=== PATIENT | female | born 1940 | race Asian ===

== ENCOUNTER 2016-06-27 18:21 | Emergency (ER) | payer OTHER ==
[~2016-06-27] VITALS: Ht 172.7 cm; Wt 73.5 kg
[~2016-06-27 18:21] MED LIST: ALPR0.2566 PO; ASPIR-8181 MG OR; BENTYL10 MG PO; BENZONATATE100 MG PO; CARAFATE1 GM PO; CLEM2.687 OR; CLOP75TA2 PO; FLUT0.05 NAS; GABA300C2 PO; GLUCOPHAGE1000 MG PO; INTEGRA OR; KAPVAY0.1 MG PO; KETOROLAC15 MG/ML IJ; LISI20TA24 PO; LOPERAMIDE2 MG OR; MECLIZINE25 M1 OR; METO5TAB16 PO; MYSOLINE50 MG OR; NEXIUM40 M1 PO; ONDA4TAB3 PO; RANI150T78 PO; SINGULAIR10 MG OR; SITA50TA2 PO; VALTREX1 GM PO; VICODIN ES1 TA1 PO; Z-PAK PO; ZANAFLEX2 MG PO
[2016-06-27 19:22] LABS: PLATELET COUNT 205 K/uL (152-353)
[2016-06-27 19:32] LABS: POTASSIUM 4.8 mmol/L (3.6-5.2)
[2016-06-28 00:55] VITALS: BP 168/88; TEMP 98.1
== END 2016-06-28 00:57 | disposition home or self-care (01) ==
LOC: ED 18:21
DX: E11.65 Type 2 diabetes mellitus with hyperglycemia (principal); N13.39 Other hydronephrosis
CPT/HCPCS: 36415; 80048; 83036; 85027; 96360; 96361; 99284; Q9963

== ENCOUNTER 2016-07-26 08:28 | Emergency (ER) | payer OTHER ==
[~2016-07-26] VITALS: Ht 172.7 cm; Wt 73.5 kg
[2016-07-26 08:26] VITALS: TEMP 97.8
[2016-07-26 09:29] LABS: PLATELET COUNT 202 K/uL (152-353)
[2016-07-26 09:36] LABS: POTASSIUM 4.4 mmol/L (3.6-5.2); SODIUM 130 mmol/L (136-145)
[2016-07-26 10:05] LABS: PARTIAL THROMBOPLASTIN TIME 21.6 SECONDS (24.5-33.6)
[2016-07-26] MEDS ORDERED: AMOX875T8 PO (10:39)
[2016-07-26] MEDS ORDERED: BENZ100C8 PO (10:39)
[2016-07-26 10:43] VITALS: BP 160/80
== END 2016-07-26 10:43 | disposition home or self-care (01) ==
LOC: ED 08:28
PROVIDERS: Emergency Medicine
DX: E87.1 Hypo-osmolality and hyponatremia (principal); R53.1 Weakness
CPT/HCPCS: 36415; 80053; 82550; 84484; 85027; 85610; 85730; 93005; 99283

== ENCOUNTER 2016-08-18 11:02 | Outpatient (CLI) | payer OTHER ==
[~2016-08-18 11:02] MED LIST changes: +AMOX875T8 PO; +BENZ100C8 PO
== END 2016-08-18 19:16 | disposition home or self-care (01) ==
LOC: MAMMO 11:02
DX: Z12.31 Encounter for screening mammogram for malignant neoplasm of breast (principal)
CPT/HCPCS: G0202-TC

== ENCOUNTER 2016-09-26 11:06 | Outpatient (CLI) | payer OTHER | END 2016-09-26 19:13 | disposition home or self-care (01) | LOC: RAD 11:06 | DX: Z13.820 Encounter for screening for osteoporosis (principal); M85.89 Other specified disorders of bone density and structure, multiple sites ==

== ENCOUNTER 2017-03-18 12:05 | Emergency (ER) | payer OTHER ==
[~2017-03-18] VITALS: Ht 172.7 cm; Wt 86.2 kg
[2017-03-18 14:05] LABS: PLATELET COUNT 249 K/uL (152-353)
[2017-03-18 15:49] VITALS: BP 131/64; TEMP 98.4
== END 2017-03-18 15:54 | disposition home or self-care (01) ==
LOC: ED 12:05
DX: R91.8 Other nonspecific abnormal finding of lung field (principal); M50.30 Other cervical disc degeneration, unspecified cervical region; M62.838 Other muscle spasm; W06.XXXA Fall from bed, initial encounter; Y92.098 Other place in other non-institutional residence as the place of occurrence of the external cause; Z98.890 Other specified postprocedural states
CPT/HCPCS: 36415; 85027; 85651; 99283

== ENCOUNTER 2017-03-23 13:50 | Inpatient (IN) | payer OTHER ==
[~2017-03-23] VITALS: Ht 172.7 cm; Wt 93.0 kg
[2017-03-23 14:06] VITALS: BP 134/56; TEMP 98
[2017-03-23] MEDS ORDERED: PROM25TA52 PO (17:39)
[2017-03-23] MEDS ORDERED: CIPRO XR500 MG PO (17:40)
[2017-03-23] MEDS ORDERED: ONDA4TAB3 PO (17:40)
[2017-03-23] MEDS ORDERED: DIAZ5TAB20 PO (17:46)
[2017-03-23] MEDS ORDERED: LOPERAMIDE2 MG PO (17:47)
[2017-03-23] MEDS ORDERED: MONT10TA PO (17:48)
[2017-03-23] MEDS ORDERED: HYDR25TA60 PO (17:49)
[2017-03-23] MEDS ORDERED: TIZA4TAB5 PO (17:50)
[2017-03-23] MEDS ORDERED: JANUVIA100 MG PO (17:51)
[2017-03-23 19:01] LABS: PLATELET COUNT 190 K/uL (152-353)
[2017-03-23 19:20] LABS: POTASSIUM 4.1 mmol/L (3.6-5.2)
[2017-03-23 22:29] VITALS: BP 124/63; TEMP 98.5; Ht 172.7 cm; Wt 93.0 kg
[2017-03-24 00:15] VITALS: BP 124/63; TEMP 98.5
[2017-03-24 04:00] VITALS: BP 154/90; TEMP 98.2
[2017-03-24] MEDS ORDERED: GABA400C2 PO (06:34)
[2017-03-24] MEDS ORDERED: FERR325T5 PO (06:47)
[2017-03-24] MEDS ORDERED: BROTAPP PO (07:10)
[2017-03-24 07:43] VITALS: BP 152/92; TEMP 98.6
[2017-03-24 09:31] LABS: PLATELET COUNT 185 K/uL (152-353)
[2017-03-24 09:56] LABS: POTASSIUM 4.2 mmol/L (3.6-5.2)
[2017-03-24 12:00] VITALS: BP 112/50; TEMP 97.7
[2017-03-24 16:00] VITALS: BP 110/70; BP 88/41; TEMP 98.6
[2017-03-24 19:58] VITALS: BP 100/52; TEMP 98.9
[2017-03-25] VITALS: BP 146/66; TEMP 98.7
[2017-03-25 04:00] VITALS: BP 112/56; TEMP 98.4
[2017-03-25 08:30] VITALS: BP 160/62; TEMP 98.2
[2017-03-25 08:41] LABS: PLATELET COUNT 198 K/uL (152-353)
[2017-03-25 08:55] LABS: POTASSIUM 4.4 mmol/L (3.6-5.2)
[2017-03-25 12:00] VITALS: BP 102/58; TEMP 98
== END 2017-03-25 15:45 | disposition home or self-care (01) | DRG 641 ==
LOC: ED 13:50 → MED/SURG 20:15
PROVIDERS: ADMIT Emergency Medicine
DX: E87.1 Hypo-osmolality and hyponatremia (principal); N18.4 Chronic kidney disease, stage 4 (severe); I82.499 Acute embolism and thrombosis of other specified deep vein of unspecified lower extremity; R41.82 Altered mental status, unspecified; I12.9 Hypertensive chronic kidney disease with stage 1 through stage 4 chronic kidney disease, or unspecified chronic kidney disease; E11.22 Type 2 diabetes mellitus with diabetic chronic kidney disease; D50.8 Other iron deficiency anemias; J44.9 Chronic obstructive pulmonary disease, unspecified; D72.828 Other elevated white blood cell count
CPT/HCPCS: 36415; 80053; 80320; 81000; 82150; 82550; 82553; 82570; 83690; 83735; 84300; 84484; 84540; 85027; 93005; 94640; 94664; 94760; 96360; 96361; 96372; 99284; J1644; J1650; J3490

== ENCOUNTER → 2017-03-23 13:50 | Outpatient (CLI) | payer OTHER ==
[~2017-03-23 13:50] MED LIST changes: +BROTAPP PO; +CIPRO XR500 MG PO; +DIAZ5TAB20 PO; +FERR325T5 PO; +GABA400C2 PO; +HYDR25TA60 PO; +JANUVIA100 MG PO; +LOPERAMIDE2 MG PO; +MONT10TA PO; +PROM25TA52 PO; +TIZA4TAB5 PO
== END | disposition short-term general hospital (02) ==
LOC: AMB 13:50
DX: R11.2 Nausea with vomiting, unspecified (principal); R53.1 Weakness
CPT/HCPCS: A0425; A0429

== ENCOUNTER 2017-04-04 09:05 | Outpatient (CLI) | payer OTHER | END 2017-04-04 10:15 | disposition home or self-care (01) | LOC: US 09:05 | DX: R94.4 Abnormal results of kidney function studies (principal) ==

== ENCOUNTER 2017-05-29 16:17 | Outpatient (CLI) | payer OTHER | END 2017-05-29 16:21 | disposition short-term general hospital (02) | LOC: AMB 16:17 | DX: R51 Headache (principal); R25.2 Cramp and spasm | CPT/HCPCS: A0425; A0427 ==

== ENCOUNTER 2017-05-29 16:21 | Emergency (ER) | payer OTHER ==
[~2017-05-29] VITALS: Ht 162.6 cm; Wt 74.8 kg
[2017-05-29 17:23] LABS: PLATELET COUNT 269 K/uL (152-353)
[2017-05-29 19:33] LABS: POTASSIUM 4.4 mmol/L (3.6-5.2)
[2017-05-29 22:21] LABS: POTASSIUM 4.2 mmol/L (3.6-5.2)
[2017-05-29 22:40] VITALS: BP 112/65; TEMP 98.2
== END 2017-05-29 22:56 | disposition home or self-care (01) ==
LOC: ED 16:21
DX: E87.1 Hypo-osmolality and hyponatremia (principal); E11.9 Type 2 diabetes mellitus without complications; W18.39XA Other fall on same level, initial encounter; Y92.89 Other specified places as the place of occurrence of the external cause
CPT/HCPCS: 36415; 80048; 80053; 81000; 83036; 85027; 96360; 99284

== ENCOUNTER 2017-06-26 13:42 | Outpatient (CLI) | payer OTHER ==
[2017-06-26 14:51] LABS: POTASSIUM 4.2 mmol/L (3.6-5.2)
[2017-06-26 15:20] LABS: PLATELET COUNT 229 K/uL (152-353)
== END 2017-06-26 14:45 | disposition home or self-care (01) ==
LOC: LAB 13:42
PROVIDERS: Nurse Practitioner Family
DX: I10 Essential (primary) hypertension (principal); K21.9 Gastro-esophageal reflux disease without esophagitis; J44.9 Chronic obstructive pulmonary disease, unspecified; D64.89 Other specified anemias; E87.1 Hypo-osmolality and hyponatremia; E11.9 Type 2 diabetes mellitus without complications; N18.4 Chronic kidney disease, stage 4 (severe)
CPT/HCPCS: 80053; 80061; 83036; 84436; 84443; 85027

== ENCOUNTER 2017-07-05 05:16 | Outpatient (CLI) | payer OTHER | END 2017-07-05 05:21 | disposition short-term general hospital (02) | LOC: AMB 05:16 | DX: R19.7 Diarrhea, unspecified (principal); R53.1 Weakness; W18.39XA Other fall on same level, initial encounter; Y92.098 Other place in other non-institutional residence as the place of occurrence of the external cause | CPT/HCPCS: A0425; A0427 ==

== ENCOUNTER 2017-07-05 05:32 | Emergency (ER) | payer OTHER ==
[~2017-07-05] VITALS: Ht 162.6 cm; Wt 91.6 kg
[2017-07-05 05:28] VITALS: TEMP 97.4
[2017-07-05 06:05] LABS: POTASSIUM 3.9 mmol/L (3.6-5.2)
[2017-07-05 06:19] LABS: PLATELET COUNT 273 K/uL (152-353)
[2017-07-05 14:00] VITALS: BP 138/60
[2017-07-05 14:16] LABS: PARTIAL THROMBOPLASTIN TIME 24.7 SECONDS (24.5-33.6)
== END 2017-07-05 14:50 | disposition short-term general hospital (02) ==
LOC: ED 05:32
DX: R07.89 Other chest pain (principal); R79.89 Other specified abnormal findings of blood chemistry; I45.81 Long QT syndrome; W18.39XA Other fall on same level, initial encounter; Y92.098 Other place in other non-institutional residence as the place of occurrence of the external cause
CPT/HCPCS: 36415; 80053; 82550; 82553; 84484; 85027; 85610; 85730; 87081; 87324; 87449; 87804; 87880; 93005; 96365; 99285; J1644

== ENCOUNTER 2017-07-05 14:51 | Outpatient (CLI) | payer OTHER | END 2017-07-05 16:47 | disposition short-term general hospital (02) | LOC: AMB 14:51 | DX: R07.89 Other chest pain (principal); R79.89 Other specified abnormal findings of blood chemistry; I45.81 Long QT syndrome | CPT/HCPCS: A0425; A0427 ==

== ENCOUNTER 2017-07-30 14:25 | Outpatient (CLI) | payer OTHER ==
[2017-07-30] MEDS ORDERED: PANTOPRAZOLE 40MG TA PO (14:59)
[2017-07-30] MEDS ORDERED: CARV12.5 PO (14:59)
[2017-07-30] MEDS ORDERED: LIPITOR40 MG PO (15:00)
[2017-07-30] MEDS ORDERED: ASPIR-8181 MG PO (15:00)
[2017-07-30] MEDS ORDERED: BRILINTA90 MG PO (15:01)
[2017-07-30] MEDS ORDERED: NITR0.4S2 SL (15:02)
== END 2017-07-30 14:31 | disposition short-term general hospital (02) ==
LOC: AMB 14:25
DX: R10.84 Generalized abdominal pain (principal); M54.5 Low back pain
CPT/HCPCS: A0425; A0427

== ENCOUNTER 2017-07-30 14:35 | Observation (INO) | payer OTHER ==
[~2017-07-30] VITALS: Ht 162.6 cm; Wt 89.8 kg
[2017-07-30] VITALS (7 sets, daily range): BP systolic 128–187; BP diastolic 72–82; TEMP 97.2
[2017-07-30] MEDS ORDERED: PANTOPRAZOLE 40MG TA PO (14:59)
[2017-07-30] MEDS ORDERED: CARV12.5 PO (14:59)
[2017-07-30] MEDS ORDERED: ASPIR-8181 MG PO (15:00)
[2017-07-30] MEDS ORDERED: LIPITOR40 MG PO (15:00)
[2017-07-30] MEDS ORDERED: BRILINTA90 MG PO (15:01)
[2017-07-30] MEDS ORDERED: NITR0.4S2 SL (15:02)
[2017-07-30 15:43] LABS: PLATELET COUNT 300 K/uL (152-353)
[2017-07-30 15:49] LABS: POTASSIUM 3.7 mmol/L (3.6-5.2)
[2017-07-31] VITALS: BP 151/61; TEMP 97.4
[2017-07-31 02:22] VITALS: BP 169/80; TEMP 98.2; Ht 162.6 cm; Wt 89.8 kg
[2017-07-31 04:00] VITALS: BP 135/61; TEMP 98.8
[2017-07-31 08:00] VITALS: BP 140/62; TEMP 98.8
[2017-07-31 10:08] LABS: PLATELET COUNT 262 K/uL (152-353)
[2017-07-31 10:22] LABS: POTASSIUM 3.9 mmol/L (3.6-5.2)
[2017-07-31 12:28] VITALS: BP 149/59; TEMP 98.6
== END 2017-07-31 16:25 | disposition home or self-care (01) ==
LOC: ED 14:35 → MED/SURG 18:32
PROVIDERS: Family Medicine
DX: K59.09 Other constipation (principal); I25.10 Atherosclerotic heart disease of native coronary artery without angina pectoris; I10 Essential (primary) hypertension; E78.4 Other hyperlipidemia; E11.42 Type 2 diabetes mellitus with diabetic polyneuropathy; K21.9 Gastro-esophageal reflux disease without esophagitis; E87.1 Hypo-osmolality and hyponatremia; Z86.73 Personal history of transient ischemic attack (TIA), and cerebral infarction without residual deficits; J44.9 Chronic obstructive pulmonary disease, unspecified
CPT/HCPCS: 36415; 80048; 80053; 85027; 96374; 99220; 99284; G0378; J1650; J1885; J3490; J7120

== ENCOUNTER 2017-08-07 14:23 | Emergency (ER) | payer OTHER ==
[~2017-08-07] VITALS: Ht 162.6 cm; Wt 86.2 kg
[2017-08-07 14:20] VITALS: TEMP 98
[~2017-08-07 14:23] MED LIST changes: +ASPIR-8181 MG PO; +BRILINTA90 MG PO; +CARV12.5 PO; +LIPITOR40 MG PO; +NITR0.4S2 SL; +PANTOPRAZOLE 40MG TA PO
[2017-08-07 16:48] LABS: PLATELET COUNT 211 K/uL (152-353); POTASSIUM 4.3 mmol/L (3.6-5.2); SODIUM 129 mmol/L (136-145)
[2017-08-07 19:43] VITALS: BP 133/64
== END 2017-08-07 19:44 | disposition home or self-care (01) ==
LOC: ED 14:23
PROVIDERS: Emergency Medicine
DX: M54.89 Other dorsalgia (principal); R06.09 Other forms of dyspnea; R10.32 Left lower quadrant pain
CPT/HCPCS: 36415; 80053; 81000; 82550; 84484; 85027; 93005; 99283; J2405

== ENCOUNTER → 2017-12-09 10:25 | Outpatient (CLI) | payer OTHER ==
[~2017-12-09 10:25] MED LIST changes: +CLON0.1T16 PO; +FERROUS SULF325 M1 PO; +LISI20TA11 PO; +METOCLOPRAM5 MG PO; +ONDANSETRON HYDR4 MG PO; +TIZANIDINE HYDRO4 MG PO
== END | disposition home or self-care (01) ==
LOC: AMB 10:25
DX: R07.89 Other chest pain (principal)

== ENCOUNTER 2018-01-17 14:55 | Outpatient (CLI) | payer OTHER ==
[~2018-01-17 14:55] MED LIST changes: -CLON0.1T16 PO; -FERROUS SULF325 M1 PO; -LISI20TA11 PO; -METOCLOPRAM5 MG PO; -ONDANSETRON HYDR4 MG PO; -TIZANIDINE HYDRO4 MG PO
[2018-01-17 15:24] LABS: PLATELET COUNT 257 K/uL (152-353)
== END 2018-01-17 23:27 | disposition home or self-care (01) ==
LOC: LAB 14:55
PROVIDERS: Nurse Practitioner Family
DX: M25.50 Pain in unspecified joint (principal); I10 Essential (primary) hypertension; J44.9 Chronic obstructive pulmonary disease, unspecified; N18.4 Chronic kidney disease, stage 4 (severe); K21.9 Gastro-esophageal reflux disease without esophagitis; D64.9 Anemia, unspecified; I25.10 Atherosclerotic heart disease of native coronary artery without angina pectoris; Z00.00 Encounter for general adult medical examination without abnormal findings; Z79.899 Other long term (current) drug therapy
CPT/HCPCS: 80053; 80061; 83036; 84436; 84443; 85027

== ENCOUNTER 2018-01-20 12:20 | Emergency (ER) | payer OTHER ==
[~2018-01-20] VITALS: Ht 162.6 cm; Wt 86.2 kg
[2018-01-20 12:50] LABS: PLATELET COUNT 222 K/uL (152-353)
[2018-01-20 12:59] LABS: POTASSIUM 4.4 mmol/L (3.6-5.2)
[2018-01-20 18:12] VITALS: BP 119/84; TEMP 98.2
== END 2018-01-20 18:13 | disposition home or self-care (01) ==
LOC: ED 12:20
DX: K59.09 Other constipation (principal)
CPT/HCPCS: 36415; 74022; 80053; 85027; 93005; 99283; J1885; Q9963

== ENCOUNTER 2018-03-24 15:49 | Outpatient (CLI) | payer OTHER ==
[2018-03-24] MEDS ORDERED: ONDANSETRON HYDR4 MG PO (16:10)
[2018-03-24] MEDS ORDERED: LISI20TA11 PO (16:11)
[2018-03-24] MEDS ORDERED: CARAFATE1 GM PO (16:11)
[2018-03-24] MEDS ORDERED: CLON0.1T16 PO (16:12)
[2018-03-24] MEDS ORDERED: TIZANIDINE HYDRO4 MG PO (16:12)
[2018-03-24] MEDS ORDERED: LOPERAMIDE2 MG PO (16:13)
[2018-03-24] MEDS ORDERED: METOCLOPRAM5 MG PO (16:14)
[2018-03-24] MEDS ORDERED: FERROUS SULF325 M1 PO (16:14)
== END 2018-03-24 15:52 | disposition short-term general hospital (02) ==
LOC: AMB 15:49
DX: R10.9 Unspecified abdominal pain (principal)
CPT/HCPCS: A0425; A0427

== ENCOUNTER 2018-03-24 15:57 | Emergency (ER) | payer OTHER ==
[~2018-03-24] VITALS: Ht 162.6 cm; Wt 72.6 kg
[2018-03-24 16:00] VITALS: TEMP 98.1
[2018-03-24] MEDS ORDERED: ONDANSETRON HYDR4 MG PO (16:10)
[2018-03-24] MEDS ORDERED: CARAFATE1 GM PO (16:11)
[2018-03-24] MEDS ORDERED: LISI20TA11 PO (16:11)
[2018-03-24] MEDS ORDERED: TIZANIDINE HYDRO4 MG PO (16:12)
[2018-03-24] MEDS ORDERED: CLON0.1T16 PO (16:12)
[2018-03-24] MEDS ORDERED: LOPERAMIDE2 MG PO (16:13)
[2018-03-24] MEDS ORDERED: FERROUS SULF325 M1 PO (16:14)
[2018-03-24] MEDS ORDERED: METOCLOPRAM5 MG PO (16:14)
[2018-03-24 16:55] LABS: PLATELET COUNT 265 K/uL (152-353)
[2018-03-24 17:04] LABS: POTASSIUM 4.1 mmol/L (3.6-5.2)
[2018-03-24 18:20] VITALS: BP 118/66
== END 2018-03-24 18:44 | disposition home or self-care (01) ==
LOC: ED 15:57
PROVIDERS: Family Medicine
DX: K59.09 Other constipation (principal); T47.4X5A Adverse effect of other laxatives, initial encounter
CPT/HCPCS: 36415; 74022; 80053; 81000; 85027; 96374; 96375; 99284; J1885; J2405

== ENCOUNTER 2018-07-05 07:18 | Outpatient (CLI) | payer OTHER ==
[~2018-07-05 07:18] MED LIST changes: +CLON0.1T16 PO; +FERROUS SULF325 M1 PO; +LISI20TA11 PO; +METOCLOPRAM5 MG PO; +ONDANSETRON HYDR4 MG PO; +TIZANIDINE HYDRO4 MG PO
[2018-07-05] MEDS ORDERED: SITA50TA2 PO (18:46)
[2018-07-05] MEDS ORDERED: TIZA4TAB5 PO (18:47)
== END 2018-07-05 07:22 | disposition short-term general hospital (02) ==
LOC: AMB 07:18
DX: R19.7 Diarrhea, unspecified (principal)
CPT/HCPCS: A0425; A0427

== ENCOUNTER 2018-07-05 07:26 | Inpatient (IN) | payer OTHER ==
[~2018-07-05] VITALS: Ht 162.6 cm; Wt 85.0 kg
[2018-07-05 07:26] VITALS: BP 119/80; TEMP 98.1
[2018-07-05 08:13] LABS: PLATELET COUNT 240 K/uL (152-353)
[2018-07-05 08:35] LABS: POTASSIUM 4.5 mmol/L (3.6-5.2)
[2018-07-05 16:33] VITALS: BP 96/51; TEMP 98.5; Ht 162.6 cm; Wt 85.0 kg
[2018-07-05] MEDS ORDERED: SITA50TA2 PO (18:46)
[2018-07-05] MEDS ORDERED: TIZA4TAB5 PO (18:47)
[2018-07-05 20:00] VITALS: BP 82/43; TEMP 99.2
[2018-07-06] VITALS: BP 103/45; TEMP 99.3
[2018-07-06 04:00] VITALS: BP 110/50; TEMP 98.8
[2018-07-06 07:00] LABS: PLATELET COUNT 234 K/uL (152-353)
[2018-07-06 07:05] LABS: POTASSIUM 4.1 mmol/L (3.6-5.2)
[2018-07-06 16:12] VITALS: BP 113/51; TEMP 98.8
[2018-07-06 19:53] VITALS: BP 139/67; TEMP 99.2
[2018-07-07] VITALS: BP 103/51; TEMP 100.7
[2018-07-07 03:59] VITALS: BP 125/68; TEMP 98.8
[2018-07-07 08:00] VITALS: BP 148/73; TEMP 98.4
[2018-07-07 09:05] LABS: PLATELET COUNT 206 K/uL (152-353)
[2018-07-07 09:24] LABS: POTASSIUM 3.9 mmol/L (3.6-5.2)
[2018-07-07 12:15] VITALS: BP 89/45; TEMP 97.8
[2018-07-07 19:50] VITALS: BP 152/73; TEMP 98.5
[2018-07-08] VITALS: BP 95/42; TEMP 98.7
[2018-07-08 04:00] VITALS: BP 183/86; TEMP 98.8
[2018-07-08 08:00] VITALS: BP 174/79; TEMP 98.9
[2018-07-08 08:21] LABS: PLATELET COUNT 202 K/uL (152-353)
[2018-07-08 08:37] LABS: POTASSIUM 4.1 mmol/L (3.6-5.2)
[2018-07-08] MEDS ORDERED: BENZONATATE100 MG PO (09:11)
[2018-07-08] MEDS ORDERED: FERROUS SULF325 MG PO (09:12)
[2018-07-08] MEDS ORDERED: GUAI600T70 PO (09:13)
[2018-07-08] MEDS ORDERED: LACTTAB PO (09:14)
[2018-07-08] MEDS ORDERED: AZIT250T3 PO (09:34)
[2018-07-08] MEDS ORDERED: AMOX875T8 PO (09:34)
== END 2018-07-08 10:40 | disposition home or self-care (01) | DRG 871 ==
LOC: ED 07:34 → MED/SURG 12:35
PROVIDERS: Emergency Medicine; Family Medicine; ADMIT Internal Medicine
DX: A41.89 Other specified sepsis (principal); J18.8 Other pneumonia, unspecified organism; N39.0 Urinary tract infection, site not specified; N17.8 Other acute kidney failure; J44.0 Chronic obstructive pulmonary disease with (acute) lower respiratory infection; I95.89 Other hypotension; I25.10 Atherosclerotic heart disease of native coronary artery without angina pectoris; I13.10 Hypertensive heart and chronic kidney disease without heart failure, with stage 1 through stage 4 chronic kidney disease, or unspecified chronic kidney disease; E11.22 Type 2 diabetes mellitus with diabetic chronic kidney disease; N18.3 Chronic kidney disease, stage 3 (moderate); K21.9 Gastro-esophageal reflux disease without esophagitis; F32.89 Other specified depressive episodes; Z99.81 Dependence on supplemental oxygen
CPT/HCPCS: 36415; 36600; 80048; 80053; 80307; 81000; 82550; 82553; 82805; 83605; 83735; 83880; 84484; 85027; 87040; 87070; 87088; 87205; 87278; 87899; 93005; 94640; 94664; 94668; 94760; 96365; 99284; J0456; J0696; J2310; J3475

== ENCOUNTER 2018-09-06 09:24 | Outpatient (CLI) | payer OTHER ==
[~2018-09-06 09:24] MED LIST changes: +AZIT250T3 PO; +FERROUS SULF325 MG PO; +GUAI600T70 PO; +LACTTAB PO
== END 2018-09-06 22:26 | disposition home or self-care (01) ==
LOC: US 09:24
DX: K42.9 Umbilical hernia without obstruction or gangrene (principal)

== ENCOUNTER 2018-09-24 19:58 | Outpatient (CLI) | payer OTHER ==
[2018-09-25] MEDS ORDERED: DICYCLOMINE HYD20 MG PO (01:48)
[2018-09-25] MEDS ORDERED: PROMETHAZINE HY25 MG PO (02:01)
[2018-09-25] MEDS ORDERED: LIPITOR80 MG PO (02:03)
[2018-09-25] MEDS ORDERED: RANI150T78 PO (02:04)
[2018-09-25] MEDS ORDERED: CARV25TA PO (02:07)
[2018-09-25] MEDS ORDERED: NITR0.4S2 SL (02:11)
[2018-09-25] MEDS ORDERED: LOPERAMIDE2 MG PO (02:13)
[2018-09-25] MEDS ORDERED: HYDR10TA47A PO (09:54)
[2018-09-25] MEDS ORDERED: CLONIDINE HCL0.1 MG PO (09:58)
[2018-09-25] MEDS ORDERED: DOCU100C10 PO (10:00)
[2018-09-25] MEDS ORDERED: STIOLTO RESPIMA1 AER INH (10:00)
[2018-09-25] MEDS ORDERED: CEPHALEXIN500 MG PO (10:02)
[2018-09-25] MEDS ORDERED: ALBU90AE13 INH (10:03)
== END 2018-09-24 20:04 | disposition short-term general hospital (02) ==
LOC: AMB 19:58
DX: R10.84 Generalized abdominal pain (principal); I95.89 Other hypotension
CPT/HCPCS: A0425; A0429

== ENCOUNTER 2018-09-24 20:09 | Inpatient (IN) | payer OTHER ==
[~2018-09-24] VITALS: Ht 162.6 cm; Wt 85.5 kg
[2018-09-24 20:29] VITALS: BP 101/41; TEMP 98.5
[2018-09-24 21:16] VITALS: BP 116/67
[2018-09-24 22:00] VITALS: BP 145/61
[2018-09-24 22:02] LABS: PLATELET COUNT 199 K/uL (152-353)
[2018-09-24 22:15] LABS: POTASSIUM 5.9 mmol/L (3.6-5.2); SODIUM 127 mmol/L (136-145)
[2018-09-24 22:46] VITALS: BP 160/61
[2018-09-24 23:18] VITALS: BP 154/73
[2018-09-25 00:54] VITALS: BP 195/80; TEMP 98.4; Ht 162.6 cm; Wt 85.5 kg
[2018-09-25] MEDS ORDERED: DICYCLOMINE HYD20 MG PO (01:48)
[2018-09-25] MEDS ORDERED: PROMETHAZINE HY25 MG PO (02:01)
[2018-09-25] MEDS ORDERED: LIPITOR80 MG PO (02:03)
[2018-09-25] MEDS ORDERED: RANI150T78 PO (02:04)
[2018-09-25] MEDS ORDERED: CARV25TA PO (02:07)
[2018-09-25] MEDS ORDERED: NITR0.4S2 SL (02:11)
[2018-09-25] MEDS ORDERED: LOPERAMIDE2 MG PO (02:13)
[2018-09-25 04:00] VITALS: BP 117/63; TEMP 97.9
[2018-09-25 07:08] LABS: POTASSIUM 4.6 mmol/L (3.6-5.2); SODIUM 137 mmol/L (136-145)
[2018-09-25 08:00] VITALS: BP 197/82; TEMP 98.9
[2018-09-25] MEDS ORDERED: HYDR10TA47A PO (09:54)
[2018-09-25] MEDS ORDERED: CLONIDINE HCL0.1 MG PO (09:58)
[2018-09-25] MEDS ORDERED: DOCU100C10 PO (10:00)
[2018-09-25] MEDS ORDERED: STIOLTO RESPIMA1 AER INH (10:00)
[2018-09-25] MEDS ORDERED: CEPHALEXIN500 MG PO (10:02)
[2018-09-25] MEDS ORDERED: ALBU90AE13 INH (10:03)
[2018-09-25 12:00] VITALS: BP 131/70; TEMP 98.8
[2018-09-25 15:04] LABS: POTASSIUM 4.4 mmol/L (3.6-5.2); SODIUM 135 mmol/L (136-145)
[2018-09-25 16:00] VITALS: BP 210/100; TEMP 99.1
[2018-09-25 20:00] VITALS: BP 137/68; TEMP 98.5
[2018-09-26] VITALS: BP 131/56; TEMP 98.2
[2018-09-26 04:00] VITALS: BP 196/92; TEMP 98.2
[2018-09-26 06:20] LABS: PLATELET COUNT 187 K/uL (152-353)
[2018-09-26 06:31] LABS: POTASSIUM 4.7 mmol/L (3.6-5.2)
[2018-09-26 08:00] VITALS: BP 162/63; TEMP 98.5
[2018-09-26 12:00] VITALS: BP 80/50; TEMP 97.7
[2018-09-26 16:00] VITALS: BP 100/71; TEMP 97.4
[2018-09-26 20:00] VITALS: BP 159/73; TEMP 97.6
[2018-09-27] VITALS: BP 127/68; TEMP 98.4
[2018-09-27 04:00] VITALS: BP 194/72; TEMP 97.8
[2018-09-27 08:00] VITALS: BP 197/80; TEMP 98.4
[2018-09-27 08:32] LABS: PLATELET COUNT 212 K/uL (152-353)
[2018-09-27 12:00] VITALS: BP 128/64; TEMP 97.7
[2018-09-27 16:00] VITALS: BP 145/74; TEMP 98.6
[2018-09-27 19:49] VITALS: BP 157/62; TEMP 99.10
[2018-09-28] VITALS (7 sets, daily range): BP systolic 97–159; BP diastolic 46–94; TEMP 98–98.8
[2018-09-29 04:00] VITALS: BP 187/96; TEMP 98.3
[2018-09-29 06:31] LABS: PLATELET COUNT 214 K/uL (152-353)
[2018-09-29 06:50] LABS: POTASSIUM 4.4 mmol/L (3.6-5.2)
[2018-09-29 08:00] VITALS: BP 170/79; TEMP 98.1
[2018-09-29 12:00] VITALS: BP 164/74; TEMP 97.5
[2018-09-29 16:00] VITALS: BP 135/74; TEMP 97.9
[2018-09-29 20:00] VITALS: BP 175/75; TEMP 98.8
[2018-09-29 23:55] VITALS: BP 96/45; TEMP 98.5
[2018-09-30 00:38] LABS: PLATELET COUNT 207 K/uL (152-353)
[2018-09-30 03:51] VITALS: BP 119/50; TEMP 98.6
[2018-09-30 08:00] VITALS: BP 145/71; TEMP 97.9
[2018-09-30 12:00] VITALS: BP 151/76; TEMP 98.3
[2018-09-30 16:00] VITALS: BP 150/79; TEMP 98.2
[2018-09-30 20:00] VITALS: BP 185/83; TEMP 98.3
[2018-10-01] VITALS: BP 150/61; TEMP 98.4
[2018-10-01 04:00] VITALS: BP 159/89; TEMP 98.4
[2018-10-01 05:35] LABS: PLATELET COUNT 230 K/uL (152-353)
[2018-10-01 08:00] VITALS: BP 182/93; TEMP 98.3
[2018-10-01] MEDS ORDERED: LIDO2SOL PO (10:39)
[2018-10-01] MEDS ORDERED: CLON0.1T16 PO (10:41)
[2018-10-01] MEDS ORDERED: LEVOFLOXACIN750 MG PO (10:43)
[2018-10-01 12:00] VITALS: BP 182/71; TEMP 98.3
== END 2018-10-01 14:35 | disposition home or self-care (01) | DRG 190 ==
LOC: ED 20:09 → MED/SURG 23:00
PROVIDERS: Emergency Medicine; ADMIT Internal Medicine
DX: J44.0 Chronic obstructive pulmonary disease with (acute) lower respiratory infection (principal); J18.0 Bronchopneumonia, unspecified organism; I95.89 Other hypotension; D53.9 Nutritional anemia, unspecified; I12.9 Hypertensive chronic kidney disease with stage 1 through stage 4 chronic kidney disease, or unspecified chronic kidney disease; E11.22 Type 2 diabetes mellitus with diabetic chronic kidney disease; N18.3 Chronic kidney disease, stage 3 (moderate); K21.9 Gastro-esophageal reflux disease without esophagitis; I25.10 Atherosclerotic heart disease of native coronary artery without angina pectoris
CPT/HCPCS: 36415; 80048; 80053; 80307; 81000; 82140; 82272; 82550; 82553; 83605; 83880; 84484; 85027; 85379; 87040; 87070; 87205; 87899; 93005; 94640; 94664; 94760; 96360; 99284; J0456; J0696; J1815; J1885; J1956; J2060; J2405; Q9963

== ENCOUNTER 2018-10-10 14:49 | Outpatient (CLI) | payer OTHER ==
[~2018-10-10 14:49] MED LIST changes: +ALBU90AE13 INH; +CARV25TA PO; +CEPHALEXIN500 MG PO; +CLONIDINE HCL0.1 MG PO; +DICYCLOMINE HYD20 MG PO; +DOCU100C10 PO; +HYDR10TA47A PO; +LEVOFLOXACIN750 MG PO; +LIDO2SOL PO; +LIPITOR80 MG PO; +PROMETHAZINE HY25 MG PO; +STIOLTO RESPIMA1 AER INH
== END 2018-10-10 19:55 | disposition home or self-care (01) ==
LOC: RAD 14:49
DX: M47.27 Other spondylosis with radiculopathy, lumbosacral region (principal)

== ENCOUNTER 2018-10-30 07:34 | Day surgery (SDC) | payer OTHER | END 2018-10-30 10:10 | disposition home or self-care (01) | LOC: OR 07:34 | PROC: 3E0T3TZ Introduction of Destructive Agent into Peripheral Nerves and Plexi, Percutaneous Approach (ICD-10-PCS; principal; 2018-10-30) | PROC: BR16YZZ Fluoroscopy of Lumbar Facet Joint(s) using Other Contrast (ICD-10-PCS; 2018-10-30) | DX: M47.817 Spondylosis without myelopathy or radiculopathy, lumbosacral region (principal) | CPT/HCPCS: J2001 ==

== ENCOUNTER 2018-11-19 07:52 | Outpatient (CLI) | payer OTHER | END 2018-11-19 23:00 | disposition home or self-care (01) | LOC: RAD 07:52 | DX: M54.2 Cervicalgia (principal); M25.511 Pain in right shoulder; R05 Cough ==

== ENCOUNTER 2018-11-20 07:44 | Day surgery (SDC) | payer OTHER ==
[~2018-11-20] VITALS: Ht 172.7 cm; Wt 85.7 kg
== END 2018-11-20 09:52 | disposition home or self-care (01) ==
LOC: OR 07:44
PROC: 3E0T3TZ Introduction of Destructive Agent into Peripheral Nerves and Plexi, Percutaneous Approach (ICD-10-PCS; principal; 2018-11-20)
PROC: BR16YZZ Fluoroscopy of Lumbar Facet Joint(s) using Other Contrast (ICD-10-PCS; 2018-11-20)
DX: M47.816 Spondylosis without myelopathy or radiculopathy, lumbar region (principal)
CPT/HCPCS: J2001

== ENCOUNTER 2018-12-05 09:29 | Outpatient (CLI) | payer OTHER | END 2018-12-05 19:51 | disposition home or self-care (01) | LOC: CT 09:29 | DX: J84.10 Pulmonary fibrosis, unspecified (principal); M25.511 Pain in right shoulder; M85.80 Other specified disorders of bone density and structure, unspecified site; Z78.0 Asymptomatic menopausal state ==

== ENCOUNTER 2018-12-19 12:34 | Outpatient (CLI) | payer OTHER | END 2018-12-19 12:36 | disposition short-term general hospital (02) | LOC: AMB 12:34 | DX: T81.89XA Other complications of procedures, not elsewhere classified, initial encounter (principal); R53.1 Weakness | CPT/HCPCS: A0425; A0429 ==

== ENCOUNTER 2018-12-19 12:37 | Emergency (ER) | payer OTHER ==
[~2018-12-19] VITALS: Ht 162.6 cm; Wt 85.3 kg
[2018-12-19 16:09] LABS: POTASSIUM 4.4 mmol/L (3.6-5.2)
[2018-12-19 16:31] LABS: PLATELET COUNT 181 K/uL (152-353)
[2018-12-19 18:55] VITALS: BP 181/87; TEMP 98
== END 2018-12-19 20:10 | disposition short-term general hospital (02) ==
LOC: ED 12:37
PROVIDERS: Hospitalist
DX: K56.7 Ileus, unspecified (principal); K91.89 Other postprocedural complications and disorders of digestive system; T81.43XA Infection following a procedure, organ and space surgical site, initial encounter; K65.1 Peritoneal abscess
CPT/HCPCS: 36415; 80053; 81000; 82150; 83690; 85027; 85610; 93005; 96365; 96375; 99284; J2270; J2405; J2543

== ENCOUNTER 2018-12-28 09:49 | Outpatient (CLI) | payer OTHER | END 2018-12-28 09:54 | disposition short-term general hospital (02) | LOC: AMB 09:49 | DX: R07.89 Other chest pain (principal) | CPT/HCPCS: A0425; A0427 ==

== ENCOUNTER 2018-12-28 13:05 | Outpatient (CLI) | payer OTHER | END 2018-12-28 14:13 | disposition short-term general hospital (02) | LOC: AMB 13:05 | DX: R07.89 Other chest pain (principal); I21.4 Non-ST elevation (NSTEMI) myocardial infarction | CPT/HCPCS: A0425; A0427 ==

== ENCOUNTER 2019-02-12 09:56 | Outpatient (CLI) | payer OTHER | END 2019-02-12 10:02 | disposition short-term general hospital (02) | LOC: AMB 09:56 | DX: R11.2 Nausea with vomiting, unspecified (principal) | CPT/HCPCS: A0425; A0429 ==

== ENCOUNTER 2019-02-12 10:09 | Emergency (ER) | payer OTHER ==
[~2019-02-12] VITALS: Ht 162.6 cm; Wt 74.4 kg
[2019-02-12 10:59] LABS: PLATELET COUNT 285 K/uL (152-353)
[2019-02-12 11:14] LABS: POTASSIUM 3.8 mmol/L (3.6-5.2)
[2019-02-12 15:03] VITALS: BP 151/72; TEMP 98
== END 2019-02-12 15:03 | disposition home or self-care (01) ==
LOC: ED 10:09
PROVIDERS: Emergency Medicine
DX: R10.84 Generalized abdominal pain (principal); R11.2 Nausea with vomiting, unspecified
CPT/HCPCS: 80053; 85027; 96360; 96375; 99284; J1885; J2405; Q9963

== ENCOUNTER 2019-02-21 18:53 | Outpatient (CLI) | payer OTHER ==
[2019-02-21] MEDS ORDERED: ELIQUIS5 MG PO (20:01)
[2019-02-21] MEDS ORDERED: CARV3.12 PO (20:02)
[2019-02-21] MEDS ORDERED: ENTRESTO 24-261 TAB PO (20:02)
[2019-02-21] MEDS ORDERED: BUMETANIDE1 MG PO (20:03)
[2019-02-21] MEDS ORDERED: KETOROLAC10 MG PO (20:04)
== END 2019-02-21 18:57 | disposition short-term general hospital (02) ==
LOC: AMB 18:53
DX: R10.10 Upper abdominal pain, unspecified (principal); M54.89 Other dorsalgia
CPT/HCPCS: A0425; A0427

== ENCOUNTER 2019-02-21 19:09 | Emergency (ER) | payer OTHER ==
[~2019-02-21] VITALS: Ht 162.6 cm; Wt 74.4 kg
[2019-02-21] MEDS ORDERED: ELIQUIS5 MG PO (20:01)
[2019-02-21] MEDS ORDERED: ENTRESTO 24-261 TAB PO (20:02)
[2019-02-21] MEDS ORDERED: CARV3.12 PO (20:02)
[2019-02-21] MEDS ORDERED: BUMETANIDE1 MG PO (20:03)
[2019-02-21] MEDS ORDERED: KETOROLAC10 MG PO (20:04)
[2019-02-21 20:54] LABS: PLATELET COUNT 314 K/uL (152-353)
[2019-02-21 21:01] LABS: POTASSIUM 3.4 mmol/L (3.6-5.2)
[2019-02-21 23:09] VITALS: BP 167/70; TEMP 97.8
== END 2019-02-21 23:09 | disposition home or self-care (01) ==
LOC: ED 19:09
PROVIDERS: Family Medicine
DX: R10.84 Generalized abdominal pain (principal); E87.6 Hypokalemia
CPT/HCPCS: 36415; 80053; 81000; 85027; 87088; 99284

== ENCOUNTER 2019-04-11 12:32 | Outpatient (CLI) | payer OTHER ==
[~2019-04-11 12:32] MED LIST changes: +BUMETANIDE1 MG PO; +CARV3.12 PO; +ELIQUIS5 MG PO; +ENTRESTO 24-261 TAB PO; +KETOROLAC10 MG PO
== END 2019-04-11 12:35 | disposition short-term general hospital (02) ==
LOC: AMB 12:32
DX: R10.84 Generalized abdominal pain (principal); R94.31 Abnormal electrocardiogram [ECG] [EKG]
CPT/HCPCS: A0425; A0427

== ENCOUNTER 2019-04-11 12:41 | Emergency (ER) | payer OTHER ==
[~2019-04-11] VITALS: Ht 162.6 cm; Wt 64.4 kg
[2019-04-11 13:34] LABS: PLATELET COUNT 249 K/uL (152-353)
[2019-04-11 13:53] LABS: POTASSIUM 6.9 mmol/L (3.6-5.2)
[2019-04-11 21:10] LABS: POTASSIUM 5.4 mmol/L (3.6-5.2)
[2019-04-12 00:55] VITALS: BP 89/40; TEMP 96
== END 2019-04-12 00:55 | disposition short-term general hospital (02) ==
LOC: ED 12:41
PROVIDERS: Family Medicine
PROC: 0T9B70Z Drainage of Bladder with Drainage Device, Via Natural or Artificial Opening (ICD-10-PCS; principal; 2019-04-11)
DX: N28.9 Disorder of kidney and ureter, unspecified (principal); E87.6 Hypokalemia; E86.0 Dehydration; J06.9 Acute upper respiratory infection, unspecified; I95.9 Hypotension, unspecified
CPT/HCPCS: 36415; 51702; 80048; 80053; 81000; 82550; 83605; 84484; 85027; 93005; 94664; 96360; 96361; 96365; 96375; 96376; 99285; J0696; J1815; J2175; J2405; J2550